=== PATIENT | female | born 1945 | race Caucasian/White ===

== ENCOUNTER 2018-03-31 10:04 | Day surgery (SDC) | payer MEDICARE, BC ==
[~2018-03-31 10:04] MED LIST: Lactated Ringers 1,000 ML IV SCH
[2018-03-31] MEDS ORDERED: fentaNYL 100 MCG/2 ML SDV ONE (11:19)
[2018-03-31] MEDS ORDERED: Propofol 200 MG/20 ML SDV ONE ×2 (11:19→11:46)
[2018-03-31 12:32] VITALS: BP 108/57
--- NOTE | 2018-04-01 01:56 | OR ---
PREOPERATIVE DIAGNOSIS: History of colon polyps. POSTOPERATIVE DIAGNOSIS: History of colon polyps. PROCEDURE PERFORMED: Colonoscopy. INDICATIONS: The patient is a 72-year-old female with history of colon polyps in the past. The last scope was 3 years ago where, I believe, 3 were removed. She also has a family history of colon cancer, presents for repeat colonoscopy at this time. PROCEDURE IN DETAIL: This was done in the endoscopy suite. Sedation was given per Anesthesia. She was placed in left lateral position. First rectal exam done was normal. Scope was introduced in the rectum and slowly advanced to the rectum, sigmoid, descending, transverse, and ascending colon until the cecum was reached. Once the cecum was reached, scope was withdrawn looking at all the mucosal surfaces on the way out. No mucosal abnormalities, lesions or polyps were noted. She had moderate sigmoid diverticulosis. FINAL DIAGNOSIS: Sigmoid diverticulosis, otherwise normal exam. PLAN: Repeat colonoscopy in 10 years' time. BKD: 03/31/2018 12:09:50 MODL: 03/31/2018 19:54:11 /[id number]
== END 2018-03-31 13:10 | disposition home or self-care (01) ==
LOC: VM.SDS 10:04
PROVIDERS: ATTEND Surgery
DX: Z12.11 Encounter for screening for malignant neoplasm of colon (principal); K57.30 Diverticulosis of large intestine without perforation or abscess without bleeding; I10 Essential (primary) hypertension; I48.91 Unspecified atrial fibrillation; E11.9 Type 2 diabetes mellitus without complications; E78.5 Hyperlipidemia, unspecified; C91.10 Chronic lymphocytic leukemia of B-cell type not having achieved remission; Z79.01 Long term (current) use of anticoagulants; Z79.84 Long term (current) use of oral hypoglycemic drugs; Z79.899 Other long term (current) drug therapy; Z98.890 Other specified postprocedural states; Z88.2 Allergy status to sulfonamides; Z88.5 Allergy status to narcotic agent; Z88.8 Allergy status to other drugs, medicaments and biological substances; Z86.010 Personal history of colon polyps; Z80.0 Family history of malignant neoplasm of digestive organs
CPT/HCPCS: 00812; 36415; 82962; 85610; G0105; J2704; J3010; J7120

== ENCOUNTER 2019-06-03 16:13 | Emergency (ER) | payer MEDICARE, BC ==
[2019-06-03 16:35] VITALS: BP 159/78; PULSE 69
[2019-06-03 17:22] LABS: ANION GAP 20.5 mmol/L (10-20)
--- NOTE | 2019-06-04 07:30 | EDM.PDOC ---
ED HPI GENERAL MEDICAL PROBLEM - General Chief Complaint: Gastrointestinal Problem Stated Complaint: BLEEDING Time Seen by Provider: 06/03/19 16:35 Source of Information: Reports: Patient History Limitations: Reports: No Limitations - History of Present Illness INITIAL COMMENTS - FREE TEXT/NARRATIVE: PtYeison presents to ER with complaints of marj bloody stools. She has had problems with rectal bleeding and is scheduled for a coloscopy on Saturday. She has had problems with rectal bleeding in the past. She states that she thinks the bleeding was worse today. Denies any fever or chills. He states that she has a history of severe hemorrhoids and is prone to bleeding. She is on eliquis for a-fib. Denies any lightheadedness or shortness of breath. No rectal pain. She has had only one episode of bloody stools today. Onset Date: 06/03/19 - Related Data Allergies Allergy/AdvReac Type Severity Reaction Status Date / Time amlodipine Allergy Other Verified 06/03/19 16:22 propoxyphene Allergy Other Verified 06/03/19 16:22 Sulfa (Sulfonamide Allergy Other Verified 06/03/19 16:22 Antibiotics) hydrocodone AdvReac Dizziness Verified 06/03/19 16:22 lisinopril AdvReac Dizziness Verified 06/03/19 16:22 oxycodone [Oxycodone] AdvReac Nausea and Verified 06/03/19 16:22 Vomiting Home Meds: Home Meds Metoprolol Succinate [Toprol Xl] 50 mg PO DAILY 07/29/14 [History] metFORMIN [Glucophage] 1,000 mg PO BID 07/29/14 [History] Estradiol [Estrace 0.01% Vaginal Crm] 2 gm VAG ASDIRECTED 03/27/18 [History] Flecainide Acetate 150 mg PO Q12H 03/27/18 [History] SitaGLIPtin [Januvia] 50 mg PO DAILY 03/27/18 [History] atorvaSTATin Calcium [Atorvastatin Calcium] 20 mg PO DAILY 03/27/18 [History] Apixaban [Eliquis] 5 mg PO BID 06/03/19 [History] Omeprazole 40 mg PO DAILY 06/03/19 [History] Past Medical History HEENT History: Reports: None Cardiovascular History: Reports: Afib, High Cholesterol, Hypertension Respiratory History: Reports: None Gastrointestinal History: Reports: Colon Polyp, Irritable Bowel Syndrome Other Gastrointestinal History: fm hx colon ca Genitourinary History: Reports: UTI, Recurrent, Other (See Below) Other Genitourinary History: uses catheter for urination. neurogenic bladder. stress urinary incontinence. midline cystocele. postmenopausal atrophic vaginitis Musculoskeletal History: Reports: Osteoporosis Neurological History: Reports: None Psychiatric History: Reports: None Endocrine/Metabolic History: Reports: Diabetes, Type II Hematologic History: Reports: Anticoagulation Therapy Immunologic History: Reports: None Oncologic (Cancer) History: Reports: Other (See Below) Other Oncologic History: CLL-CHRONIC LYMPHOCYTIC LEUKEMIA Dermatologic History: Reports: None - Past Surgical History Head Surgeries/Procedures: Reports: None HEENT Surgical History: Reports: Naso-Sinus Surgery Cardiovascular Surgical History: Reports: None GI Surgical History: Reports: Colonoscopy Female Surgical History: Reports: D&C Neurological Surgical History: Reports: None Musculoskeletal Surgical History: Reports: Shoulder Surgery Social & Family History - Tobacco Use Smoking Status *Q: Former Smoker Used Tobacco, but Quit: Yes Month/Year Tobacco Last Used: 1979 - Caffeine Use Caffeine Use: Reports: Coffee Other Caffeine Use: 1 cup/day - Recreational Drug Use Recreational Drug Use: No ED ROS GENERAL - Review of Systems Review Of Systems: See Below Constitutional: Reports: No Symptoms Respiratory: Reports: No Symptoms Cardiovascular: Reports: No Symptoms Endocrine: Reports: No Symptoms GI/Abdominal: Reports: Bloody Stool, Hematochezia. Denies: Abdominal Pain, Black Stool, Distension, Hematemesis, Melena, Nausea, Vomiting : Reports: No Symptoms Musculoskeletal: Reports: No Symptoms Skin: Reports: No Symptoms Neurological: Reports: No Symptoms Psychiatric: Reports: No Symptoms Hematologic/Lymphatic: Reports: No Symptoms Immunologic: Reports: No Symptoms ED EXAM, GENERAL - Physical Exam Exam: See Below Exam Limited By: No Limitations General Appearance: Alert, WD/WN, No Apparent Distress Respiratory/Chest: No Respiratory Distress, Lungs Clear, Normal Breath Sounds, No Accessory Muscle Use, Chest Non-Tender Cardiovascular: Normal Peripheral Pulses, Regular Rate, Rhythm, No Edema, No JVD Peripheral Pulses: 4+: Radial (R) GI/Abdominal: Normal Bowel Sounds, Soft, Non-Tender, No Organomegaly, No Distention (Female) Exam: Deferred Rectal (Female) Exam: Bloody Stool, Other (marj blood noted on attend. Internal and external hemorroids on exam. No continued bleeding noted.) Back Exam: Normal Inspection, Full Range of Motion Extremities: Normal Inspection, Normal Range of Motion, Non-Tender, No Pedal Edema, Normal Capillary Refill Neurological: Alert, Oriented, CN II-XII Intact, Normal Cognition, Normal Gait, Normal Reflexes, No Motor/Sensory Deficits Psychiatric: Normal Affect, Normal Mood Skin Exam: Warm, Dry, Intact, Normal Color, No Rash Course - Vital Signs Last Recorded V/S: Last Vital Signs Temp 35.7 C 06/03/19 16:19 Pulse 69 06/03/19 16:19 Resp 16 06/03/19 16:19 BP 159/78 H 06/03/19 16: Pulse Ox 97 06/03/19 16:19 - Orders/Labs/Meds Labs: Laboratory Tests 06/03/19 06/03/19 06/03/19 Range/Units 16:53 16:53 16:53 WBC 39.4 H* (4.0-10.0) x10^3/uL RBC 3.36 L (4.00-5.50) x10^6/uL Hgb 10.4 L D (12.0-16.0) g/dL Hct 33.9 (33.0-47.0) % MCV 100.9 H D (78.0-93.0) fL MCH 31.0 (26.0-32.0) pg MCHC 30.7 L (32.0-36.0) g/dL RDW Coeff of Brown 14.9 (10.0-15.0) % Plt Count 186 (130-400) x10^3/uL Add Manual Diff Yes Neutrophils % (Manual) 8 L (50-80) % Lymphocytes % (Manual) 74 H (25-50) % Monocytes % (Manual) 1 L (2-11) % Metamyelocytes % 2 H (0) % Myelocytes % 2 H (0) % Blast Cells % 13 H (0) % Smudge Cells Rare H Platelet Estimate Adequate Macrocytosis 1+ slight H PT 10.9 (10.0-12.8) SEC INR 1.0 L (2.0-3.5) Sodium 141 (136-145) mmol/L Potassium 4.5 (3.5-5.1) mmol/L Chloride 103 (98-107) mmol/L Carbon Dioxide 22 (21-32) mmol/L Anion Gap 20.5 H (10-20) mmol/L BUN 16 (7-18) mg/dL Creatinine 1.0 (0.55-1.02) mg/dL Est Cr Clr Drug Dosing 49.45 mL/min Estimated GFR (MDRD) 55 Glucose 211 H (74-106) mg/dL Calcium 9.1 (8.5-10.1) mg/dL Corrected Calcium 9.42 (8.5-10.1) mg/dL Total Bilirubin 0.3 (0.2-1.0) mg/dL AST 10 L (15-37) U/L ALT 17 (14-59) U/L Alkaline Phosphatase 72 (46-116) U/L Total Protein 6.1 L (6.4-8.2) g/dL Albumin 3.6 (3.4-5.0) g/dL Globulin 2.5 Albumin/Globulin Ratio 1.44 Departure - Departure Time of Disposition: 18:00 Disposition: Home, Self-Care 01 Clinical Impression: Rectal bleeding - Discharge Information Instructions: Lower Gastrointestinal Bleeding Referrals: Deepti Hicks, [Primary Care Provider] - Forms: ED Department Discharge Additional Instructions: Stop Eliquis tonight. Recheck CBC in clinic in Saturday Return to ER if you have continued large marj bloody stools. You should expect blood mixed with stool and clots. Also return if you are short of breath, lightheaded, or sweaty. - Problem List Review Problem List Initiated/Reviewed/Updated: Yes - Assessment/Plan Plan: Dr. Brown was consulted. He advised that she be discharged with repeat HGB in 1- 2 days. Return to ER if further marj bleeding. Stop Eliquis tonight. Recheck CBC in clinic in Saturday Return to ER if you have continued large marj bloody stools. You should expect blood mixed with stool and clots. Also return if you are short of breath, lightheaded, or sweaty.
== END 2019-06-03 17:49 | disposition home or self-care (01) ==
LOC: VM.ED 16:13
DX: K62.5 Hemorrhage of anus and rectum (principal); I48.91 Unspecified atrial fibrillation; E78.00 Pure hypercholesterolemia, unspecified; I10 Essential (primary) hypertension; E11.9 Type 2 diabetes mellitus without complications; Z87.891 Personal history of nicotine dependence; Z79.84 Long term (current) use of oral hypoglycemic drugs; Z79.01 Long term (current) use of anticoagulants; Z88.8 Allergy status to other drugs, medicaments and biological substances
CPT/HCPCS: 36415; 80053; 85025; 85610; 99284; 99284-GF

== ENCOUNTER 2019-06-08 08:26 | Day surgery (SDC) | payer MEDICARE, BC ==
[2019-06-08] MEDS ORDERED: Lactated Ringers 1,000 ML IV SCH (09:00)
[2019-06-08] MEDS ORDERED: Sodium Chloride 0.9% 10 ML Syringe FLUSH PRN (09:00)
[2019-06-08] MEDS ORDERED: Propofol 200 MG/20 ML SDV ONE ×2 (09:40→10:02)
[2019-06-08] MEDS ORDERED: fentaNYL 100 MCG/2 ML SDV ONE (09:40)
[2019-06-08 10:51] VITALS: BP 116/58; PULSE 64
--- NOTE | 2019-06-08 14:05 | OR ---
PREOPERATIVE DIAGNOSIS: Rectal bleeding. POSTOPERATIVE DIAGNOSIS: Rectal bleeding. PROCEDURE PERFORMED: Colonoscopy. INDICATION: The patient is a 73-year-old female, who was seen in the ER last week with history of rectal bleeding, presents for colonoscopy for further evaluation. PROCEDURE IN DETAIL: This was done in the operating room. Sedation was given per Anesthesia. She was placed in left lateral position. First, a rectal exam was done, was normal. The scope was then introduced into the rectum, slowly advanced to the rectum, sigmoid, descending, transverse, and ascending colon until the cecum was reached. Upon reaching the cecum, the scope was withdrawn looking at all mucosal surfaces on the way out. No mucosal abnormalities, lesions, or polyps were noted. She had moderate sigmoid diverticulosis and she had moderate internal hemorrhoids. FINAL DIAGNOSES: 1. Sigmoid diverticulosis. 2. Internal hemorrhoids. PLAN: At this point, she will be a candidate for either hemorrhoid banding or hemorrhoidectomy to further control her rectal bleeding. BKD: 06/08/2019 10:29:36 MODL: 06/08/2019 13:58:14 /[id number]
== END 2019-06-08 11:26 | disposition home or self-care (01) ==
LOC: VM.SDS 08:26
PROVIDERS: ATTEND Surgery
DX: K62.5 Hemorrhage of anus and rectum (principal); K57.30 Diverticulosis of large intestine without perforation or abscess without bleeding; K64.8 Other hemorrhoids; K58.0 Irritable bowel syndrome with diarrhea; I10 Essential (primary) hypertension; I48.91 Unspecified atrial fibrillation; E11.9 Type 2 diabetes mellitus without complications; E78.5 Hyperlipidemia, unspecified; C91.10 Chronic lymphocytic leukemia of B-cell type not having achieved remission; F41.9 Anxiety disorder, unspecified; N81.11 Cystocele, midline; Z88.5 Allergy status to narcotic agent; Z88.8 Allergy status to other drugs, medicaments and biological substances; Z87.891 Personal history of nicotine dependence; Z79.01 Long term (current) use of anticoagulants; Z79.84 Long term (current) use of oral hypoglycemic drugs; Z79.899 Other long term (current) drug therapy
CPT/HCPCS: 00811; 45378; 82962; J2704; J3010; J7120

== ENCOUNTER 2020-03-17 10:12 | Emergency (ER) | payer MEDICARE, BC ==
[2020-03-17 10:27] VITALS: BP 170/83; PULSE 63
--- NOTE | 2020-03-17 13:23 | EDM.PDOC ---
ED HPI GENERAL MEDICAL PROBLEM - General Chief Complaint: Cardiovascular Problem Stated Complaint: HIGH BLOOD PRESSURE Time Seen by Provider: 03/17/20 10:30 Source of Information: Reports: Patient History Limitations: Reports: No Limitations - History of Present Illness INITIAL COMMENTS - FREE TEXT/NARRATIVE: Pt. presents to ER with complaints of hypertension. She states that it has been gradually getting higher when she has been taking it at home as well as in the clinic. BP today was greater than 180 systolic. Pt. States that she contacted her PCP but they have not gotten back to her, so she came in. Denies any symptoms. No chest pain or shortness of breath. No nausea, vomiting, headache, troubles with speech or walking, numbness/tingling in extremities or face, or other worrisome signs or symptoms. She states that she took her Toprol XL this AM, as well as her flecainide which she is prescribed for atrial fibrillation. Onset: Today Onset Date: 03/17/20 Associated Symptoms: Reports: Other (hypertension) - Related Data Allergies Allergy/AdvReac Type Severity Reaction Status Date / Time amlodipine Allergy Other Verified 03/17/20 10:27 propoxyphene Allergy Other Verified 03/17/20 10:27 Sulfa (Sulfonamide Allergy Other Verified 03/17/20 10:27 Antibiotics) hydrocodone AdvReac Dizziness Verified 03/17/20 10:27 lisinopril AdvReac Dizziness Verified 03/17/20 10:27 oxycodone [Oxycodone] AdvReac Nausea and Verified 03/17/20 10:27 Vomiting Home Meds: Home Meds metFORMIN [Glucophage] 1,000 mg PO BID 07/29/14 [History] Flecainide Acetate 150 mg PO Q12H 03/27/18 [History] SitaGLIPtin [Januvia] 50 mg PO DAILY 03/27/18 [History] atorvaSTATin Calcium [Atorvastatin Calcium] 20 mg PO DAILY 03/27/18 [History] estradioL [Estrace 0.01% Vaginal Crm] 2 gm VAG ASDIRECTED 03/27/18 [History] Apixaban [Eliquis] 5 mg PO BID 06/03/19 [History] Metoprolol Succinate [Toprol XL 50mg] 50 mg PO DAILY 02/09/20 [History] Past Medical History HEENT History: Reports: Impaired Vision, Other (See Below) Other HEENT History: 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 neurogenic bladder. stress urinary incontinence. midline cystocele. postmenopausal atrophic vaginitis Musculoskeletal History: Reports: Osteoporosis Neurological History: Reports: None Psychiatric History: Reports: None Endocrine/Metabolic History: Reports: Diabetes, Type II Hematologic History: Reports: Anticoagulation Therapy Immunologic History: Reports: None Oncologic (Cancer) History: Reports: Leukemia, Other (See Below) Other Oncologic History: CLL-CHRONIC LYMPHOCYTIC LEUKEMIA Dermatologic History: Reports: None - Past Surgical History Head Surgeries/Procedures: Reports: None HEENT Surgical History: Reports: Naso-Sinus Surgery Cardiovascular Surgical History: Reports: None GI Surgical History: Reports: Colonoscopy Female Surgical History: Reports: D&C Neurological Surgical History: Reports: None Musculoskeletal Surgical History: Reports: Shoulder Surgery Social & Family History - Tobacco Use Smoking Status *Q: Never Smoker - Caffeine Use Caffeine Use: Reports: Coffee Other Caffeine Use: 1 cup/day - Recreational Drug Use Recreational Drug Use: No ED ROS GENERAL - Review of Systems Review Of Systems: See Below Constitutional: Reports: No Symptoms HEENT: Reports: No Symptoms Respiratory: Reports: No Symptoms Cardiovascular: Reports: Blood Pressure Problem Endocrine: Reports: No Symptoms GI/Abdominal: Reports: No Symptoms : Reports: No Symptoms Musculoskeletal: Reports: No Symptoms Skin: Reports: No Symptoms Neurological: Reports: No Symptoms Psychiatric: Reports: No Symptoms Hematologic/Lymphatic: Reports: No Symptoms Immunologic: Reports: No Symptoms ED EXAM, GENERAL - Physical Exam Exam: See Below Exam Limited By: No Limitations General Appearance: Alert, WD/WN, No Apparent Distress Eye Exam: Bilateral Eye: EOMI, PERRL Head: Atraumatic, Normocephalic Neck: Normal Inspection, Supple, Non-Tender Respiratory/Chest: No Respiratory Distress, Lungs Clear, Normal Breath Sounds, No Accessory Muscle Use, Chest Non-Tender Cardiovascular: Normal Peripheral Pulses, Regular Rate, Rhythm, No Edema, No Gallop, No JVD, No Murmur, No Rub GI/Abdominal: Soft, Non-Tender, No Mass Extremities: Normal Inspection, Normal Range of Motion, Non-Tender Neurological: Alert, Oriented, CN II-XII Intact, Normal Cognition, Normal Gait, Normal Reflexes, No Motor/Sensory Deficits Psychiatric: Normal Affect, Normal Mood Skin Exam: Warm, Dry, Intact, Normal Color, No Rash Course - Vital Signs Last Recorded V/S: Last Vital Signs Temp 36.3 C 03/17/20 10:25 Pulse 63 03/17/20 10:25 Resp 18 03/17/20 10:25 BP 170/83 H 03/17/20 10:25 Pulse Ox 97 03/17/20 10:25 Departure - Departure Time of Disposition: 11:15 Disposition: Home, Self-Care 01 Clinical Impression: Hypertension Instructions: Hypertension, Adult, [id number] Referrals: Deepti Hicks DO [Primary Care Provider] - Forms: ED Department Discharge Additional Instructions: Toprol XL 50mg 2 tablets every AM Follow-up in clinic in 7-10 days Make sure you get up slowly after starting this higher dose, as it can cause some lightheadedness. Sepsis Event Note - Evaluation Sepsis Screening Result: No Definite Risk - Focused Exam Vital Signs: Vital Signs Temp Pulse Resp BP Pulse Ox 03/17/20 10:25 36.3 C 63 18 170/83 H 97 Date Exam was Performed: 03/17/20 Time Exam was Performed: 13:18 - Problem List Review Problem List Initiated/Reviewed/Updated: Yes - Assessment/Plan Plan: Pt. BP was in the 165/90s range in ER. She is otherwise asymptomatic. Will have her increase her dose of Toprol XL to 100mg once daily. She will just take 2 pills in the morning for now and will recheck in the clinic in 7-10 days to see how she is tolerating the medication. Advised to return if she is having any chest pain, shortness of breath, neuro symptoms, palpitations, or other worrisome signs/symptoms.
== END 2020-03-17 10:49 | disposition home or self-care (01) ==
LOC: VM.ED 10:12
DX: I10 Essential (primary) hypertension (principal); Z88.2 Allergy status to sulfonamides; Z88.5 Allergy status to narcotic agent; Z88.8 Allergy status to other drugs, medicaments and biological substances; I48.91 Unspecified atrial fibrillation; E78.00 Pure hypercholesterolemia, unspecified; E11.9 Type 2 diabetes mellitus without complications; Z79.84 Long term (current) use of oral hypoglycemic drugs; Z79.01 Long term (current) use of anticoagulants; Z79.899 Other long term (current) drug therapy
CPT/HCPCS: 99283; 99284-GF

== ENCOUNTER 2022-02-13 12:28 | Emergency (ER) | payer MEDICARE, BC ==
[2022-02-13] MEDS ORDERED: Sodium Chloride 0.9% 10 ML Syringe FLUSH PRN (12:48)
[2022-02-13] MEDS ORDERED: Sodium Chloride 0.9% 1,000 ML IV ONE (12:50)
[2022-02-13 13:28] LABS: CHLORIDE,CL 102 mmol/L (98-107); SODIUM,NA 137 mmol/L (136-145)
[2022-02-13 13:50] LABS: PTT,PARTIAL THROMBOPLSTIN TIME 22.5 SEC (20.5-30.9)
[2022-02-13 18:55] VITALS: BP 114/59; PULSE 52
== END 2022-02-13 15:10 | disposition home or self-care (01) ==
LOC: VM.ED 12:28
DX: R55 Syncope and collapse (principal); E11.9 Type 2 diabetes mellitus without complications; E78.00 Pure hypercholesterolemia, unspecified; I10 Essential (primary) hypertension; Z88.8 Allergy status to other drugs, medicaments and biological substances; Z88.2 Allergy status to sulfonamides; Z88.5 Allergy status to narcotic agent; Z79.01 Long term (current) use of anticoagulants; Z79.899 Other long term (current) drug therapy
CPT/HCPCS: 80053; 83735; 83880; 84100; 84484; 85025; 85379; 85610; 85730; 93005; 93010; 99284; 99284-25; J7030

== ENCOUNTER 2022-03-15 07:53 | Day surgery (SDC) | payer MEDICARE, BC ==
[2022-03-15] MEDS ORDERED: Propofol 200 MG/20 ML SDV ONE ×2 (09:08→10:30)
[2022-03-15] MEDS ORDERED: fentaNYL 100 MCG/2 ML SDV ONE (09:08)
[2022-03-15 11:03] VITALS: BP 140/65; PULSE 64
== END 2022-03-15 11:45 | disposition home or self-care (01) ==
LOC: VM.SDS 07:53
PROVIDERS: ATTEND Family Medicine
DX: D12.6 Benign neoplasm of colon, unspecified (principal); K57.30 Diverticulosis of large intestine without perforation or abscess without bleeding; K64.9 Unspecified hemorrhoids; I10 Essential (primary) hypertension; E11.9 Type 2 diabetes mellitus without complications; G47.00 Insomnia, unspecified; Z79.4 Long term (current) use of insulin; Z79.899 Other long term (current) drug therapy; Z88.5 Allergy status to narcotic agent; Z88.8 Allergy status to other drugs, medicaments and biological substances; Z80.0 Family history of malignant neoplasm of digestive organs; Z88.2 Allergy status to sulfonamides; I48.0 Paroxysmal atrial fibrillation; Z98.890 Other specified postprocedural states; Z87.891 Personal history of nicotine dependence
CPT/HCPCS: 00811; 82947; J2704; J3010; J7120